=== PATIENT | female | born 1945 | race Caucasian/White ===

== ENCOUNTER 2022-04-09 04:37 | Inpatient (IN) | payer MEDICARE ==
[~2022-04-09] VITALS: Ht 165.1 cm; Wt 59.9 kg
[2022-04-09] MEDS ORDERED: SODIUM CHLORIDE 0.9% 500 ML IV ONE (06:00)
[2022-04-09 06:12] LABS: BASOPHILS % 0.7 % (0.0-2.0); EOSINOPHILS % 1.7 % (0.0-5.0); HEMATOCRIT. 34.6 % (36.0-48.0); HEMOGLOBIN. 11.8 g/dL (12.0-16.0); LYMPHOCYTES % 20.2 % (20.0-50.0); MEAN CORPUSCULAR HEMOGLOBIN 32.4 pg (28.0-32.0); MEAN CORPUSCULAR VOLUME 95.3 fL (81.0-99.0); MEAN PLATELET VOLUME 7.7 fl (7.4-10.4); NEUTROPHILS % 65.4 % (40.0-76.0); PLATELET 310 x1000/uL (130-400); RED BLOOD CELL COUNT 3.63 mill/uL (4.2-5.4)
[2022-04-09 06:24] LABS: CHLORIDE 112 mEq/L (98-107)
[2022-04-09 06:36] LABS: ETHANOL BLOOD < 10 mg/dL
[2022-04-09] MEDS ORDERED: POTASSIUM CHLORIDE 20MEQ TABLET SR PO ONE (08:30)
[2022-04-09] MEDS ORDERED: ACETAMINOPHEN 325MG TABLET PO PRN (10:00)
[2022-04-09] MEDS ORDERED: DIPHENHYDRAMINE 50MG/ML VIAL IV PRN (10:00)
[2022-04-09] MEDS ORDERED: ONDANSETRON HCL 4MG/2ML INJ IV PRN (10:00)
[2022-04-09] MEDS ORDERED: CLONIDINE 0.1MG TABLET PO PRN (10:00)
[2022-04-09] MEDS ORDERED: IPRATROPIUM/ALBUTEROL 0.5-3(2.5)MG/3ML NEB HHN PRN (10:00)
[2022-04-09 12:12] LABS: *AMPHETAMINES SCREEN URINE NEGATIVE (NEGATIVE); *BARBITURATES SCREEN URINE NEGATIVE (NEGATIVE); *BENZODIAZEPINES SCREEN URINE NEGATIVE (NEGATIVE); *COCAINE SCREEN URINE NEGATIVE (NEGATIVE); CANNABINOID URINE SCREEN NEGATIVE (NEGATIVE); METHADONE URINE SCREEN NEGATIVE (NEGATIVE); OPIATES URINE SCREEN NEGATIVE (NEGATIVE); PHENCYCLIDINE URINE SCREEN NEGATIVE (NEGATIVE)
[2022-04-09 14:38] VITALS: BP 144/65
[2022-04-09 14:47] VITALS: BP 144/65
[2022-04-09 16:00] VITALS: BP 141/79
[2022-04-09] MEDS ORDERED: IPRATROPIUM BROMIDE (0.02%) 0.5MG/2.5ML NEB HHN PRN (18:15)
[2022-04-09] MEDS ORDERED: ALBUTEROL (0.083%) 2.5MG/3ML NEB HHN PRN (18:15)
[2022-04-09 20:00] VITALS: BP 154/83
[2022-04-10] VITALS (8 sets, daily range): BP systolic 116–163; BP diastolic 53–89
[2022-04-10 06:14] LABS: BASOPHILS % 0.4 % (0.0-2.0); EOSINOPHILS % 2.5 % (0.0-5.0); HEMATOCRIT. 32.8 % (36.0-48.0); HEMOGLOBIN. 11.2 g/dL (12.0-16.0); LYMPHOCYTES % 20.7 % (20.0-50.0); MEAN CORPUSCULAR HEMOGLOBIN 32.8 pg (28.0-32.0); MEAN CORPUSCULAR VOLUME 96.1 fL (81.0-99.0); MEAN PLATELET VOLUME 8.2 fl (7.4-10.4); MONOCYTES % 13.4 % (2.0-8.0); PLATELET 248 x1000/uL (130-400); RED BLOOD CELL COUNT 3.41 mill/uL (4.2-5.4); RED CELL DISTRIBUTION WIDTH 14.2 % (11.6-14.6)
[2022-04-10 06:36] LABS: CHLORIDE 113 mEq/L (98-107)
[2022-04-10 06:58] LABS: VITAMIN B12 SERUM 275 pg/mL (211-911)
[2022-04-10] MEDS: CYANOCOBALAMIN 1000MCG/ML VIAL IM SCH (20:44)
[2022-04-11] VITALS: BP 155/69
[2022-04-11 04:00] VITALS: BP 158/59
[2022-04-11 08:00] VITALS: BP 158/77
[2022-04-11 12:00] VITALS: BP 159/76
[2022-04-11 16:00] VITALS: BP 155/86
[2022-04-11 20:00] VITALS: BP 160/91
[2022-04-11] MEDS: CYANOCOBALAMIN 1000MCG/ML VIAL IM SCH ×2 (20:00→20:45)
[2022-04-12] VITALS: BP 155/70
[2022-04-12 04:00] VITALS: BP 173/79
[2022-04-12 08:00] VITALS: BP 122/77
[2022-04-12 12:00] VITALS: BP 115/64
[2022-04-12 16:00] VITALS: BP 142/67
[2022-04-12 20:00] VITALS: BP 147/62
[2022-04-12] MEDS: CYANOCOBALAMIN 1000MCG/ML VIAL IM SCH (20:42)
[2022-04-13] VITALS: BP 142/85
[2022-04-13 04:00] VITALS: BP 167/69
[2022-04-13 08:00] VITALS: BP 144/77
[2022-04-13 12:00] VITALS: BP 139/89
[2022-04-13 16:00] VITALS: BP 121/73
[2022-04-13 20:00] VITALS: BP 12/71
[2022-04-14] VITALS: BP 118/60
[2022-04-14 04:00] VITALS: BP 115/66
[2022-04-14 08:00] VITALS: BP 133/75
[2022-04-14 11:26] VITALS: BP 133/75
== END 2022-04-14 14:45 | disposition home or self-care (01) | DRG 72 ==
LOC: ER 04:46 → EDBEDREQ 07:54 → ENRESERV 11:39 → 8WST 14:17
PROVIDERS: ADMIT Internal Medicine; ATTEND Internal Medicine
DX: G93.41 Metabolic encephalopathy (principal); S00.03XA Contusion of scalp, initial encounter; Z59.01 Sheltered homelessness; Z20.822 Contact with and (suspected) exposure to COVID-19; Z86.73 Personal history of transient ischemic attack (TIA), and cerebral infarction without residual deficits; Z91.83 Wandering in diseases classified elsewhere; W19.XXXA Unspecified fall, initial encounter; Y93.89 Activity, other specified; Y92.89 Other specified places as the place of occurrence of the external cause; Y99.8 Other external cause status; D51.9 Vitamin B12 deficiency anemia, unspecified
CPT/HCPCS: 36415; 70486; 71045; 80053; 80305; 80320; 82607; 83880; 84443; 84484; 85025; 87426; 87493; 93005; 93970; 97162; 97166; 97535; 99285; J3420; J7040; G0480

== ENCOUNTER 2022-04-24 10:14 | Emergency (ER) | payer MEDICARE ==
[~2022-04-24] VITALS: Ht 165.1 cm; Wt 50.0 kg
[2022-04-24 12:54] LABS: HEMATOCRIT. 34.9 % (36.0-48.0); HEMOGLOBIN. 11.8 g/dL (12.0-16.0); MEAN CORPUSCULAR HEMOGLOBIN 31.7 pg (28.0-32.0); MEAN PLATELET VOLUME 7.6 fl (7.4-10.4); PLATELET 357 x1000/uL (130-400); RED BLOOD CELL COUNT 3.71 mill/uL (4.2-5.4); RED CELL DISTRIBUTION WIDTH 14.1 % (11.6-14.6)
[2022-04-24 13:00] LABS: CHLORIDE 105 mEq/L (98-107)
[2022-04-24 13:15] LABS: ETHANOL BLOOD < 10 mg/dL
[2022-04-24 14:30] LABS: PLATELET ESTIMATE NORMAL
[2022-04-24] MEDS ORDERED: CEFTRIAXONE 1 G PREMIX 50 ML IV ONE (15:30)
[2022-04-24 16:50] LABS: CLARITY URINE CLEAR (CLEAR); COLOR URINE YELLOW (YELLOW); KETONES URINE NEGATIVE (NEGATIVE); LEUKOCYTE ESTERASE URINE NEGATIVE (NEGATIVE); NITRITE URINE NEGATIVE (NEGATIVE); OCCULT BLOOD URINE NEGATIVE (NEGATIVE); PROTEIN URINE 1+ (NEGATIVE); SPECIFIC GRAVITY URINE 1.024 (1.005-1.030)
[2022-04-24] MEDS ORDERED: ACETAMINOPHEN 325MG TABLET PO ONE (18:15)
[2022-04-24 19:47] VITALS: BP 121/53
== END 2022-04-24 22:22 | disposition short-term general hospital (02) ==
LOC: ER 10:14 → CANBEDREQ 04-25 14:57
DX: R82.998 Other abnormal findings in urine (principal); R30.0 Dysuria; Z74.1 Need for assistance with personal care; Z20.822 Contact with and (suspected) exposure to COVID-19; D64.9 Anemia, unspecified; I10 Essential (primary) hypertension; Z59.01 Sheltered homelessness; Z86.73 Personal history of transient ischemic attack (TIA), and cerebral infarction without residual deficits
CPT/HCPCS: 36415; 70450; 71045; 80053; 80320; 81003; 82140; 83605; 83880; 84443; 84484; 85025; 87040; 87077; 87086; 87186; 87426; 93005; 96365; 99291; C9803; J0696; G0480